=== PATIENT | female | born 2000 | race Caucasian/White ===

== ENCOUNTER 2021-02-24 11:46 | Emergency (ER) | payer OTHER, SELFPAY ==
--- NOTE | ~2021-02-24 | CT_ITS ---
EXAMINATION: CT abdomen pelvis w con INDICATION: Periumbilical abdominal pain TECHNIQUE: Computed tomographic images of the abdomen and pelvis were obtained after the administrati on of 100 cc of Omnipaque 350 intravenous contrast. The dose-length product (DLP) was 1560.17 mGy-cm. Automated exposure control and iterative reconstruction technique were employed. COMPARISON: None available FINDINGS: The lung bases are clear. The heart size is normal. The liver is diffusely low in attenuati on when compared with the spleen, consistent with hepatic steatosis. The spleen, pancreas, gallbladde r, and adrenal glands are normal. The kidneys are unremarkable. No pathologically enlarged abdominal or pelvic lymph nodes are identified. There is no free intraperitoneal gas or evidence of bowel obstr uction. The appendix appears normal. IMPRESSION: 1. No CT correlate for the patient's symptoms. Reviewed, dictated and finalized at location [facility] [employer]
[2021-02-24 12:10] VITALS: PULSE 97; RESP 14; TEMP 36.6; O2SAT 98
[2021-02-24 14:58] VITALS: BP 135/77; PULSE 71; TEMP 36.6; O2SAT 100
[2021-02-24 16:15] VITALS: PULSE 83; RESP 18; O2SAT 97
[2021-02-24 16:24] VITALS: BP 115/66
--- NOTE | 2021-02-24 16:27 | ED.GENADULT ---
HPI - General Adult General Chief complaint: Wound/Laceration Stated complaint: sore on abd, bleeding from umbilicus Time Seen by Provider: 02/24/21 16:17 History of Present Illness HPI narrative: 20-year-old female with history of nonalcoholic fatty liver disease presented to emergency room for evaluation of periumbilical pain with associated umbilical bleeding. Patient states that on the she began noticing some dark bleeding from her umbilicus. Patient denies any injury or piercings. Patient denies any previous abdominal surgical history. Patient denies any associated nausea vomiting constipation or diarrhea. Patient does report associated periumbilical abdominal pain. Related Data Home Medications Medication Instructions Recorded Confirmed No Home Medications 02/24/21 02/24/21 Allergies Allergy/AdvReac Type Severity Reaction Status Date / Time No Known Allergies Allergy Verified 02/24/21 16:21 Review of Systems Review of Systems: CONSTITUTIONAL: Denies fever, chills, or sweats. EYES: Denies visual changes, redness, or discharge. ENT: Denies rhinorrhea, congestion, sore throat, or otalgia. CARDIOVASCULAR: Denies chest pain, palpitations, or edema. RESPIRATORY: Denies cough or dyspnea. GASTROINTESTINAL: Denies nausea or vomiting but does report abdominal pain with umbilical bleeding GENITOURINARY: Denies dysuria or hematuria. SKIN: Denies rash or itching. MUSCULOSKELETAL: Denies back pain, joint pain, or myalgia. NEUROLOGIC: Denies headache, numbness, or weakness. PSYCHIATRIC: Denies anxiety or depression. Exam Narrative: APPEARANCE: Well appearing, no pain in distress, well-nourished. HEAD: normocephalic, atraumatic. NECK: Supple. No adenopathy, no masses. RESPIRATORY: Airway patent, respirations nonlabored. Clear to auscultation bilaterally, no rales, rhonchi, wheezing. CARDIOVASCULAR: Regular rate and rhythm without murmurs rubs or gallops. ABDOMINAL: Soft, tender to palpation around the umbilicus, normal bowel sounds, no active bleeding or traces of blood in the umbilicus, does have periumbilical tenderness to palpation. MUSCULOSKELETAL: Moves all extremities. Strength/ROM intact, No edema, No calf tenderness. NEURO: Alert. Cranial nerves II through XII intact. Good gait. Good coordination SKIN: Warm, dry. Normal Color PSYCHIATRIC: Normal affect/mood. Course Course Emergency Course: 20-year-old female presented to the emergency department for evaluation of periumbilical pain with intermittent umbilical bleeding. No active bleeding upon arrival to the emergency department. No evidence of ecchymosis but patient is tender to palpation periumbilically. CT scan was ordered to evaluate for possible Meckel diverticulum versus abscess. CT scan showed no evidence explain the patient's symptoms. Labs and imaging were reviewed. patient was updated on the results of her imaging and labs. Patient's clinical impression was abdominal pain Patient disposition was discharged to home Patient condition was stable Vital Signs Vital signs: Vital Signs Temperature 97.8 F 02/24/21 12:10 Pulse Rate 97 02/24/21 12:10 Respiratory Rate 14 02/24/21 12:10 Pulse Oximetry 98 02/24/21 12:10 Temperature 97.9 F 02/24/21 14:58 Pulse Rate 83 02/24/21 16:15 Respiratory Rate 18 02/24/21 16:15 Blood Pressure 115/66 02/24/21 16:24 Pulse Oximetry 97 02/24/21 16:15 Medical Decision Making Vital Signs Vital Signs: Vital Signs Temperature 97.8 F 02/24/21 12:10 Pulse Rate 97 02/24/21 12:10 Respiratory Rate 14 02/24/21 12:10 Pulse Oximetry 98 02/24/21 12:10 Temperature 97.9 F 02/24/21 14:58 Pulse Rate 83 02/24/21 16:15 Respiratory Rate 18 02/24/21 16:15 Blood Pressure 115/66 02/24/21 16:24 Pulse Oximetry 97 02/24/21 16:15 Lab Data Lab results reviewed: Yes I reviewed the patient's lab results. Result diagrams: 02/24/21 17:34 02/24/21 17:34
[2021-02-24 17:49] LABS: Basophils Absolute Auto 0.1 K/mm3 (0.0-0.1); Basophils Percent Auto 0.7 % (0.2-1.2); Eosinophils Absolute Auto 0.1 K/mm3 (0-0.3); Eosinophils Percent Auto 1.3 % (0-4.4); Hematocrit 40.5 % (37.0-47.0); Hemoglobin 13.3 g/dL (12.0-15.0); Immature Granulocyte Absolute 0.02 K/mm3 (0.00-0.031); Immature Granulocyte Percent A 0.3 % (0-0.5); Lymphocytes Absolute Auto 2.51 K/mm3 (0.9-3.2); Lymphocytes Percent Auto 36.1 % (18.3-44.2); Mean Corpuscular HGB Conc 32.8 g/dl (32-36); Mean Corpuscular Hemoglobin 29.2 pg (26-34); Mean Corpuscular Volume 88.8 fl (80-100); Mean Platelet Volume 12.6 fl (7.4-10.4); Monocytes Absolute Auto 0.6 K/mm3 (0.1-0.6); Monocytes Percent Auto 7.9 % (2.6-8.5); Neutrophils Absolute Auto 3.7 K/mm3 (1.3-6.7); Neutrophils Percent Auto 53.7 % (45.5-73.1); Platelet Count Result 192 k/mm3 (150-375); Red Blood Count 4.56 M/mm3 (4.2-5.4); Red Cell Distribution Width 12.9 % (11.5-14.5)
[2021-02-24 18:16] LABS: Add Urine Microscopic? YES; Appearance Urine Cloudy (Clear); Bacteria Urine Trace /hpf; Bilirubin Urine Negative (Negative); Blood Urine 1+ (Negative); Color Urine Yellow (Yellow); Glucose Urine UA Negative (Negative); Ketones Urine Negative (Negative); Leukocyte Esterase Ur Negative LEU/UL (Negative); Mucus Urine Rare /lpf; Nitrate Urine Negative (Negative); Protein Urine Negative (Negative); Specific Grav Ur 1.017 (1.001-1.035); Squamous Epithelial Cell Urine Moderate /hpf (Few); Urobilinogen Urine Negative mg/dL (<2.0)
[2021-02-24 18:22] LABS: Alanine Aminotransferase 43 U/L (4-35); Albumin Level 4.5 g/dL (3.7-5.6); Alkaline Phosphatase 73 U/L (45-116); Anion Gap 10 mmol/L (8-16); Aspartate Amino Transferase 39 U/L (14-36); Bilirubin,Total 0.4 mg/dL (0.2-1.3); Blood Urea Nitrogen 10 mg/dL (8-21); Calcium 9.6 mg/dL (8.9-10.7); Carbon Dioxide 23 mmol/L (22-30); Chloride 105 mmol/L (98-107); Estimated Glomerular Filt Rate > 60; Glucose 102 mg/dL (65-110); Sodium 138 mmol/L (134-143)
[2021-02-24 20:01] VITALS: BP 127/80; PULSE 69; RESP 18; O2SAT 98
== END 2021-02-24 20:05 | disposition home or self-care (01) ==
PROVIDERS: Emergency Provider Emergency Medicine
DX: R10.33 Periumbilical pain (principal); K76.0 Fatty (change of) liver, not elsewhere classified
CPT/HCPCS: 36415; 74177; 80053; 81001; 81025; 85025; 99284; Q9967